=== PATIENT | male | born 1945 | race Caucasian/White ===

== ENCOUNTER 2025-06-17 14:25 | Emergency (ER) | payer MEDICARE, SELFPAY ==
[2025-06-17 14:28] VITALS: BP 138/79
[2025-06-17 15:54] LABS: Hematocrit 33.1 % (39.0-52.0); Hemoglobin 10.8 g/dL (13.0-18.0); Mean Corp Hgb Conc. 32.6 g/dL (33.0-37.0); Mean Corpuscular Volume 97.1 fL (80.0-94.0); Platelet Count 239 10^3/uL (130-400); Red Cell Dist. Width 15.1 % (11.5-14.5)
[2025-06-17 15:58] LABS: COVID-19 Antigen Negative (Negative)
[2025-06-17 16:07] LABS: ALT (SGPT) 32 U/L (0-50); AST (SGOT) 36 U/L (17-59); Albumin 4.7 g/dl (3.5-5.0); Alkaline Phosphatase 71 U/L (38-126); Blood Urea Nitrogen 12 mg/dl (9-20); Calcium 9.5 mg/dl (8.4-10.2); Carbon Dioxide 24 mmol/L (22-30); Chloride 105 mmol/L (98-107); Glucose 102 mg/dl (70-99); Magnesium 2.0 mg/dl (1.6-2.3); Potassium 4.2 mmol/L (3.5-5.1); Sodium 138 mmol/L (135-145); Total Protein 8.0 g/dl (6.3-8.2); eGFR > 60.00
[2025-06-17] MEDS: ROBITUSSIN AC 10 ML PO (16:07)
[2025-06-17] MEDS: NSS 500 IV (16:07)
[2025-06-17 16:08] LABS: Nucleated Red Blood Cells % 0 % (-)
[2025-06-17] MEDS: VENTOLIN NEBULES 2.5 MG INH (16:10)
[2025-06-17 16:12] VITALS: BP 136/74
[2025-06-17 16:13] VITALS: BMI 27.4
--- NOTE | 2025-06-17 17:42 | ED.GENMED ---
History of Present Illness
General
Chief Complaint: Cough
Source: patient and spouse
Exam Limitations: none
Time Seen by Provider: 06/17/25 15:02
Nursing documentation reviewed up to this point in time: agreed with
History of Present Illness
History of Present Illness:
Patient with history of prostate cancer, presents to ED secondary to persistent cough with shortness of breath, especially at night, over the past 1 week, despite taking Augmentin along with Tessalon Perle, as prescribed at urgent care center.
Denies fever or chills. Denies nausea, vomiting, or diarrhea. Denies loss of appetite. Denies weakness or dizziness. Patient has had history of pneumonia. Patient's spouse currently is experiencing similar symptoms and is taking antibiotics as
well. Patient does frequently babysit his grandchildren.
Review of Systems
Review of Systems
Allergies reviewed?: Yes
All Other Systems: ROS reviewed and negative except as documented in HPI and ROS
Constitutional: Reports no symptoms; Denies fever or chills
Respiratory: Reports cough and trouble breathing
Cardiac: Reports no symptoms
ABD/GI: Reports no symptoms; Denies vomiting or diarrhea
Musculoskeletal: Reports no symptoms
Skin: Reports no symptoms
Neurological: Reports no symptoms; Denies headache or weakness
Phy Exam
Physical Exam
Physical Exam:
Physical Exam
General: no apparent distress, not acutely ill. afebrile
Head: nc/at. eomi
Neck: supple. no meningeal signs.
Heart: s1/s2 regular rate and rhythm
Lungs: no acute respiratory distress. rhonchi bilaterally
Abdomen: normal bowel sounds. not tender.
Neuro: alert and oriented x 3. no focal neurological deficits
Skin: no rash
Psychiatric: well kept. interactive and cooperative
Extremities: no edema. no calf tenderness.
Course
Orders/Labs/Results
Orders:
Orders
06/17/25 15:20
Albuterol Nebs [Ventolin Nebules] 2.5 mg INH R NOW STA
Guaifenesin/Codeine Solution [Robitussin AC] 10 ml PO NOW STA
CR Chest - 2 Views Urgent
Comment:
Reason For Exam: cough
06/17/25 15:32
COVID-19 Antigen Urgent
Source: Nasal Swab
Complete Blood Count/With Diff Urgent
Comprehensive Metabolic Panel Urgent
Magnesium Urgent
06/17/25 15:36
0.9% Sodium Chloride 500 ml [Nss] 500 ml IV BOLUS
06/17/25 17:42
Dexamethasone Pf [Decadron] 10 mg PO NOW STA
Abnormal Lab Results
06/17/25
15:32
RBC 3.41 L 10^6/uL
(4.70-6.10)
Hgb 10.8 L g/dL
(13.0-18.0)
Hct 33.1 L %
(39.0-52.0)
MCV 97.1 H fL
(80.0-94.0)
MCH 31.7 H pg
(27.0-31.0)
MCHC 32.6 L g/dL
(33.0-37.0)
RDW 15.1 H %
(11.5-14.5)
Abs Immat Gran (auto) 0.1 H 10^3/uL
(0-0.05)
Absolute Neuts (auto) 8.3 H 10^3/uL
(1.4-6.5)
Absolute Lymphs (auto) 0.7 L 10^3/uL
(1.2-3.4)
Neutrophils % 80.9 H %
(42.2-75.2)
Lymphocytes % 6.4 L %
(20.5-51.1)
Eosinophils % 6.9 H %
(0-6)
Glucose 102 H mg/dl
(70-99)
06/17/25 15:32
06/17/25 15:32
Vital Signs
Initial and Last Documented VS:
Initial Vital Signs
Temp Pulse Resp BP Pulse Ox
98.0 F 76 16 138/79 98
06/17/25 14:28 06/17/25 14:28 06/17/25 14:28 06/17/25 14:28 06/17/25 14:28
Last Documented Vital Signs
Temp Pulse Resp BP Pulse Ox
98.2 F 69 18 145/65 98
06/17/25 18:00 06/17/25 18:00 06/17/25 18:00 06/17/25 18:00 06/17/25 18:15
MDM/Problems Addressed
MDM/Problems Addressed:
Patient with an unremarkable workup in ED, including blood work and chest x-ray. Patient otherwise remains afebrile, hemodynamically stable, and without acute respiratory distress. History and exam consistent with likely bronchitis, likely viral.
However, in light of patient's immunocompromise state, along with continued symptoms, patient will be given prescription for Z-Riccardo along with inhaler and cough medication. Patient will be advised to follow-up with his PCP for reevaluation next
week, or return to ED with your symptoms, i.e. fever/worsening cough/vomiting/shortness of breath. Patient expresses understanding at time of discharge, to the care of his .
*Pulse Oximetry
SaO2: 98
Oxygen Mode of Delivery: Room air
Patient hypoxic: no
*Critical Care Note
Total Time (30-74mins, 75-104mins- exclusive of procedures): Not Applicable
ED Attending Note
-
Portions of this chart may have been created with voice recognition software.� Occasional wrong word or��sound alike� substitutions may have occurred due to the inherent limitations of voice recognition software.
Discharge Plan
Departure
Patient Disposition: Home (Routine Discharge)
Date of Disposition: 06/17/25
Time of Disposition: 17:42
Patient with high blood pressure during this ER visit?: Yes
Condition: Fair
Discharge Problem:
Bronchitis
Instructions: Acute Bronchitis, Adult (DC)
Prescriptions:
New
azithromycin [Zithromax Z-Riccardo] 250 mg tablet
250 mg PO DAILY 6 Days Qty: 6 0RF
codeine-guaifenesin [Guaifenesin AC] 10-100 mg/5 mL liquid
5 ml PO Q6H PRN (Reason: Cough) Qty: 120 0RF
albuterol sulfate [Ventolin HFA] 90 mcg/actuation HFA aerosol inhaler
2 puff inhalation Q6H PRN (Reason: shortness of breath or cough) Qty: 6.7 0RF
Referrals:
Raj Smith MD [Family Provider]
Activity Restrictions/Additional Instructions:
As discussed, please follow-up with your primary care physician for reevaluation. Please consider return to ED with worsening symptoms. Your prescriptions have been sent electronically to [facility] pharmacy in [place].
Interventions
Interventions:
*Risk Screen - Suicide Last Done: 06/17/25 14:28
*General Assessment Last Done: 06/17/25 16:14
*Neglect/Abuse Screening Last Done: 06/17/25 14:28
*ED- Fall Risk Assessment Last Done: 06/17/25 16:14
*ED COVID-19 Vaccine History Last Done: 06/17/25 16:14
*Nursing Disposition Last Done: 06/17/25 18:15
ED- Pulmonary Assessment Last Done: 06/17/25 15:04
Discharge Date and Time
Discharge Date/Time: 06/17/25 18:16
Print Language: CHADIAN
[2025-06-17] MEDS: DECADRON 10 MG PO (17:59)
[2025-06-17 18:00] VITALS: BP 145/65
== END 2025-06-17 18:16 | disposition home or self-care (01) ==
LOC: EMR 14:25
PROVIDERS: EMERGENCY PHYSICIAN Emergency Medicine; FAMILY PHYSICIAN Internal Medicine
DX: J40 Bronchitis, not specified as acute or chronic (principal); R03.0 Elevated blood-pressure reading, without diagnosis of hypertension; Z87.01 Personal history of pneumonia (recurrent); Z85.46 Personal history of malignant neoplasm of prostate
CPT/HCPCS: 99284; 71046; 80053; 83735; 85025; 87811